=== PATIENT | male | born 1960 | race Caucasian/White ===

== ENCOUNTER 2024-12-14 09:33 | Outpatient (CLI) | payer OTHER, SELFPAY ==
--- NOTE | 2024-12-14 09:41 | USCV_ITS ---
Nathan Enciso Age: 64 Gender: M : 1960 Exam Date: 12/14/2024 09:57 Ordering Phys: Terry Rangel MD Technologist: Exam Location: [facility] [place] Indication: syncope Risk Factors: Previous Vascular Surgery: Right Brachial BP: / Left Brachial BP: / Right Left Velocity (cm/s) Spectral Plaque Velocity (cm/s) Spectral Plaque Syst/Diast Broadening Syst/Diast Broadening 75.00/ 27.10 Prox CCA 91.80 / 44.50 75.00/ 29.70 Mid CCA 81.90 / 37.10 85.40/ 38.70 Distal CCA 79.50 / 32.20 102.00/36.30 Prox ICA 102.10/ 45.60 91.80/ 41.50 Mid ICA 80.40 / 39.50 73.80/ 38.70 Distal ICA 65.20 / 35.60 86.50 ECA 100.10 1.20 ICA/CCA 1.30 Antegrade Vertebral Antegrade 65.20/ 24.10 cm/s 59.80/ 21.20 cm/s Tri Subclavian Tri 113.1 107.8 0 0 CONCLUSIONS Right ICA stenosis <50%. Moderate atheromatous plaque right carotid bulb/ICA. Left ICA stenosis <50%. Moderate atheromatous plaque left carotid bulb/ICA. Intimal thickening in the common carotid arteries and internal carotid arteries bilaterally. Normal antegrade Doppler flow noted in the right vertebral artery. Normal antegrade Doppler flow noted in the left vertebral artery. Jey Hill MD (Electronically Signed) Final Date: 14 December 2024 11:08 S
== END 2024-12-14 09:34 | disposition home or self-care (01) ==
LOC: RAD 09:35
PROVIDERS: Visit Provider Family Medicine Geriatric Medicine
DX: R55 Syncope and collapse (principal); I65.23 Occlusion and stenosis of bilateral carotid arteries
CPT/HCPCS: 93880

== ENCOUNTER 2024-12-18 09:25 | Outpatient (CLI) | payer OTHER, SELFPAY ==
--- NOTE | 2024-12-18 09:32 | CT_ITS ---
WS: [id number] LDCT LUNG CANCER SCREENING TECHNIQUE: Noncontrast CT of the chest with coronal and sagittal reformatted images. CLINICAL INFORMATION: HX OF TOBACCO USE COMPARISON: None. DLP: 56.91 mGy.cm DIvol: Mean CTDIvol: 1.00 (mGy) All CT scans at [facility] use at least one of these dose optimization techniques: automated exposure control; mA and/or kV adjustment per patient size (includes targeted exams where dose is matched to clinical indication); or iterative reconstruction. FINDINGS: No suspicious pulmonary parenchymal abnormalities. Aortic calcification. Coronary calcification. No mediastinal or hilar lymphadenopathy. No axillary lymphadenopathy. Small esophageal hiatal hernia. Adrenal glands are normal. Moderate thoracic kyphosis. CT/CT lung screening [id number] IMPRESSION: LUNG-RADS: 1-Negative FOLLOW UP: 12 Month: Continue annual screening with LDCT
== END 2024-12-18 09:26 | disposition home or self-care (01) ==
LOC: RAD 09:27
PROVIDERS: PCP Family Medicine Geriatric Medicine; Visit Provider Nurse Practitioner Family
DX: Z12.2 Encounter for screening for malignant neoplasm of respiratory organs (principal); F17.210 Nicotine dependence, cigarettes, uncomplicated; I70.0 Atherosclerosis of aorta; I25.10 Atherosclerotic heart disease of native coronary artery without angina pectoris; K44.9 Diaphragmatic hernia without obstruction or gangrene; M40.294 Other kyphosis, thoracic region
CPT/HCPCS: 71271